=== PATIENT | female | born 2000 | race Caucasian/White ===

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

== ENCOUNTER 2019-04-22 17:41 | Emergency (ER) | payer BC ==
[2019-04-22 18:02] VITALS: BP 99/65
--- NOTE | 2019-04-22 18:16 | UC ---
General HPI - HPI Summary HPI Summary: diarrhea saturday x3, saturday x2. once yesterday and none today. past 2 days pt c/o a sore throat and white spots on R tonsil. no fever, cough, sob, abdominal pain, n/v. - History of Current Complaint Chief Complaint: UCGeneralIllness Stated Complaint: SORE THROAT/SPOTS Time Seen by Provider: 04/22/19 18:00 Hx Obtained From: Patient Hx Last Menstrual Period: 04/01/19 Pain Intensity: 0 - Allergy/Home Medications Allergies/Adverse Reactions: Allergies Allergy/AdvReac Type Severity Reaction Status Date / Time No Known Allergies Allergy Verified 04/22/19 18:04 Home Medications: Home Medications Norgestimate-Ethinyl Estradiol [Tri-Linyah Tablet] 1 tab PO DAILY 04/22/19 [ History Confirmed 04/22/19] PMH/Surg Hx/FS Hx/Imm Hx Previously Healthy: Yes - Surgical History Surgical History: None - Family History Known Family History: Positive: Diabetes, Other - postivie h for eye irritation Negative: Cardiac Disease, Hypertension - Social History Lives: With Family Alcohol Use: None Substance Use Type: None Smoking Status (MU): Never Smoked Tobacco Have You Smoked in the Last Year: No - Immunization History Vaccination Up to Date: Yes Review of Systems All Other Systems Reviewed And Are Negative: Yes Constitutional: Negative: Fever, Chills ENT: Positive: Sore Throat. Negative: Nasal Discharge, Sinus Congestion, Sinus Pain/Tenderness Respiratory: Negative: Shortness Of Breath, Cough Cardiovascular: Negative: Chest Pain Gastrointestinal: Positive: Diarrhea - has resolved. Negative: Abdominal Pain, Vomiting, Nausea Physical Exam Triage Information Reviewed: Yes Appearance: Well-Appearing Vital Signs: Initial Vital Signs Temp 98.6 F 04/22/19 17:56 Pulse 71 04/22/19 17:56 Resp 16 04/22/19 17:56 BP 99/65 04/22/19 17:56 Pulse Ox 100 04/22/19 17:56 Eye Exam: Normal ENT: Positive: Pharyngeal erythema - AND MILD TONSILLAR ERYTHEMA, TMs normal, Uvula midline. Negative: Nasal congestion, Nasal drainage, Tonsillar exudate, Trismus, Muffled voice, Hoarse voice Neck: Positive: Supple, Nontender, Enlarged Nodes @ - PERITONSILAR Respiratory: Positive: No respiratory distress Abdomen Description: Positive: Nontender, No Organomegaly, Soft Musculoskeletal: Positive: ROM Intact Neurological: Positive: Alert Psychological: Positive: Age Appropriate Behavior Skin Exam: Normal Skin: Negative: Rashes Diagnostics - Laboratory Lab Results: RAPID STREP=NEGATIVE Course/Dx - Differential Dx - Multi-Symptom Differential Diagnoses: Other - RAPID STREP=NEGATIVE. ANTIBIOTICS NOT INDICATED. - Diagnoses Provider Diagnosis: Tonsillitis Discharge - Sign-Out/Discharge Documenting (check all that apply): Patient Departure All imaging exams completed and their final reports reviewed: No Studies - Discharge Plan Condition: Stable Disposition: HOME Patient Education Materials: Tonsillitis (ED) Referrals: Sebas Torres MD [Medical Doctor] - Additional Instructions: FOLLOW UP IF NOT BETTER IN5-7 DAYS OR SOONER IF WORSE. - Billing Disposition and Condition Condition: STABLE Disposition: Home
== END 2019-04-22 18:24 | disposition home or self-care (01) ==
LOC: UCCORT 17:41
DX: J03.90 Acute tonsillitis, unspecified (principal)
CPT/HCPCS: 87651; 99211; G0463

== ENCOUNTER 2019-07-02 12:21 | Emergency (ER) | payer MEDICAID, OTHER ==
[2019-07-02 13:26] VITALS: BP 114/63
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
== END 2019-07-02 15:01 | disposition home or self-care (01) ==
LOC: UCCORT 12:21
DX: R51 Headache (principal); R42 Dizziness and giddiness
CPT/HCPCS: 99211; G0463

== ENCOUNTER 2019-07-23 08:41 | Emergency (ER) | payer OTHER ==
[2019-07-23 08:57] VITALS: BP 110/71
--- NOTE | 2019-07-23 10:10 | ED ---
Abdominal Pain/Female - HPI Summary HPI Summary: 19 yr old female with the complaint of right flank pain, and right upper quadrant pain. No fever or chills. No NVD. No loss of appetite. Pain not affected by eating. No vaginal bleeding or discharge. Pain is 5/10. - History of Current Complaint Chief Complaint: UCAbdominalPain Stated Complaint: LOWER ABD PAIN Time Seen by Provider: 07/23/19 09:02 Hx Last Menstrual Period: 07/06/19 Pain Intensity: 6 Allergies/Adverse Reactions: Allergies Allergy/AdvReac Type Severity Reaction Status Date / Time No Known Allergies Allergy Verified 07/23/19 08:57 PMH/Surg Hx/FS Hx/Imm Hx Endocrine/Hematology History: Denies: Hx Thyroid Disease Respiratory History: Denies: Hx Asthma Infectious Disease History: No Infectious Disease History: Denies: History Other Infectious Disease, Traveled Outside the in Last 30 Days - Family History Known Family History: Positive: Diabetes, Other - postivie h for eye irritation Negative: Cardiac Disease, Hypertension - Social History Occupation: Employed Full-time Alcohol Use: Occasionally Substance Use Type: Reports: None Smoking Status (MU): Never Smoked Tobacco Have You Smoked in the Last Year: No Review of Systems Constitutional: Negative Positive: flank pain All Other Systems Reviewed And Are Negative: Yes Physical Exam Triage Information Reviewed: Yes Vital Signs On Initial Exam: Initial Vitals Temp Pulse Resp BP Pulse Ox 99.4 F 87 16 110/71 98 07/23/19 08:52 07/23/19 08:52 07/23/19 08:52 07/23/19 08:52 07/23/19 08:52 Vital Signs Reviewed: Yes Appearance: Positive: Well-Appearing, No Pain Distress Skin: Positive: Warm, Skin Color Reflects Adequate Perfusion Head/Face: Positive: Normal Head/Face Inspection Eyes: Positive: EOMI ENT: Positive: Normal ENT inspection Neck: Positive: Nontender Respiratory/Lung Sounds: Positive: Clear to Auscultation, Breath Sounds Present Cardiovascular: Positive: RRR. Negative: Murmur Abdomen Description: Positive: Nontender, CVA Tenderness (R). Negative: Distended Musculoskeletal: Positive: Strength/ROM Intact Neurological: Positive: Sensory/Motor Intact, Alert, Oriented to Person Place, Time, CN Intact II-III, Normal Gait, Speech Normal Psychiatric: Positive: Normal Diagnostics - Vital Signs Vital Signs Temp Pulse Resp BP Pulse Ox 07/23/19 08:52 99.4 F 87 16 110/71 98 - Laboratory Lab Results: Lab Results 07/23/19 Range/Units 09:59 POC Urine Color Yellow POC Urine Clarity Cloudy POC Urine pH 7.0 (5-9) POC Ur Specif [place] 1.015 (1.010-1.030) POC Urine Protein 1+ A (Negative) POC Ur Glucose (UA) Negative (Negative) POC Urine Ketones Negative (Negative) POC Urine Blood 3+ A (Negative) POC Urine Nitrite Negative (Negative) POC Urine Bilirubin Negative (Negative) POC Urine Urobilinogen 0.2 (Negative) POC U Leukocyte Esteras 3+ A (Negative) Lab Statement: Any lab studies that have been ordered have been reviewed, and results considered in the medical decision making process. Abdominal Pain Fem Course/Dx - Course Course Of Treatment: 19 yr old with pyelonephritis. Rx with bactrim. DChome - Diagnoses Provider Diagnoses: Pyelonephritis Discharge ED - Sign-Out/Discharge Documenting (check all that apply): Patient Departure All imaging exams completed and their final reports reviewed: No Studies - Discharge Plan Condition: Good Disposition: HOME Prescriptions: Sulfamethox/Trimethoprim DS* [Bactrim DS 800/160 TAB*] 1 tab PO BID #20 tab Patient Education Materials: Kidney Infection (ED), Flank Pain (ED) Referrals: Daron Alejo PA [Primary Care Provider] - 2 Days - Billing Disposition and Condition Condition: GOOD Disposition: Home
== END 2019-07-23 10:17 | disposition home or self-care (01) ==
LOC: UCCORT 08:41
DX: N10 Acute pyelonephritis (principal)
CPT/HCPCS: 81003; 84702; 87077; 87086; 99212; G0463

== ENCOUNTER 2019-09-09 10:22 | Emergency (ER) | payer OTHER ==
[2019-09-09 10:58] VITALS: BP 108/63
--- NOTE | 2019-09-09 11:36 | UC ---
Throat Pain/Nasal Juan HPI - HPI Summary HPI Summary: 19 yo female with sore throat and fever/chills x 2 days hurts to swallow - History of Current Complaint Chief Complaint: UCGeneralIllness Stated Complaint: SORE THROAT Time Seen by Provider: 09/09/19 10:59 Hx Obtained From: Patient Hx Last Menstrual Period: 08/18/19 Onset/Duration: Gradual Onset, Lasting Days Severity: Moderate Pain Intensity: 5 Pain Scale Used: 0-10 Numeric Cough: None Associated Signs & Symptoms: Positive: Fever - Epiglottits Risk Factors Epiglottis Risk Factors: Negative - Allergies/Home Medications Allergies/Adverse Reactions: Allergies Allergy/AdvReac Type Severity Reaction Status Date / Time No Known Allergies Allergy Verified 09/09/19 10:54 Home Medications: Home Medications Escitalopram Oxalate [Lexapro 10 mg] 1 tab PO DAILY 09/09/19 [History Confirmed 09/09/19] PMH/Surg Hx/FS Hx/Imm Hx Previously Healthy: Yes - Surgical History Surgical History: None - Family History Known Family History: Positive: Diabetes, Other - postivie FMh for eye irritation Negative: Cardiac Disease, Hypertension - Social History Alcohol Use: Occasionally Substance Use Type: None Smoking Status (MU): Never Smoked Tobacco Have You Smoked in the Last Year: No - Immunization History Vaccination Up to Date: Yes Review of Systems All Other Systems Reviewed And Are Negative: Yes Constitutional: Positive: Fever, Chills Skin: Positive: Negative Eyes: Positive: Negative ENT: Positive: Sore Throat Respiratory: Positive: Negative Cardiovascular: Positive: Negative Gastrointestinal: Positive: Negative Genitourinary: Positive: Negative Motor: Positive: Negative Neurovascular: Positive: Negative Musculoskeletal: Positive: Negative Neurological: Positive: Negative Psychological: Positive: Negative Physical Exam Triage Information Reviewed: Yes Appearance: Well-Appearing, No Pain Distress, Well-Nourished Vital Signs: Initial Vital Signs Temp 100 F 09/09/19 10:55 Pulse 113 09/09/19 10:55 Resp 16 09/09/19 10:55 BP 108/63 09/09/19 10:55 Pulse Ox 100 09/09/19 10:55 Vital Signs Reviewed: Yes Eyes: Positive: Conjunctiva Clear ENT: Positive: Hearing grossly normal, Tonsillar swelling, Tonsillar exudate, Uvula midline. Negative: Nasal congestion, Nasal drainage, Trismus, Muffled voice, Hoarse voice Neck: Positive: Supple, Nontender, Enlarged Nodes @ - ant cerv Respiratory: Positive: Lungs clear, Normal breath sounds, No respiratory distress, No accessory muscle use Cardiovascular: Positive: RRR, No Murmur Musculoskeletal: Positive: ROM Intact, No Edema Neurological: Positive: Alert Psychological Exam: Normal Skin Exam: Normal Throat Pain/Nasal Course/Dx - Differential Dx/Diagnosis Provider Diagnosis: Tonsillitis Discharge ED - Sign-Out/Discharge Documenting (check all that apply): Patient Departure All imaging exams completed and their final reports reviewed: No Studies - Discharge Plan Condition: Stable Disposition: HOME Prescriptions: Cephalexin CAP* [Keflex CAP*] 500 mg PO BID #20 cap predniSONE [Prednisone 20 MG TAB] 60 mg PO DAILY #9 tab predniSONE [Prednisone 20 MG TAB] 60 mg PO DAILY #9 tab Patient Education Materials: Tonsillitis (ED) Forms: *Work Release Referrals: Daron Alejo PA [Primary Care Provider] - If Needed - Billing Disposition and Condition Condition: STABLE Disposition: Home
--- NOTE | 2019-09-11 07:38 | UC ---
- Progress Note Progress Note: + Group C strep On cephalexin no change ljj 09/11/19 Course/Dx - Diagnoses Provider Diagnoses: Tonsillitis Discharge ED - Sign-Out/Discharge Documenting (check all that apply): Post-Discharge Follow Up All imaging exams completed and their final reports reviewed: No Studies - Discharge Plan Condition: Stable Disposition: HOME Prescriptions: Cephalexin CAP* [Keflex CAP*] 500 mg PO BID #20 cap predniSONE [Prednisone 20 MG TAB] 60 mg PO DAILY #9 tab predniSONE [Prednisone 20 MG TAB] 60 mg PO DAILY #9 tab Patient Education Materials: Tonsillitis (ED) Forms: *Work Release Referrals: Daron Alejo PA [Primary Care Provider] - If Needed - Billing Disposition and Condition Condition: STABLE Disposition: Home
== END 2019-09-09 11:43 | disposition home or self-care (01) ==
LOC: UCCORT 10:22
DX: J03.90 Acute tonsillitis, unspecified (principal)
CPT/HCPCS: 87070; 87077; 87651; 99212; G0463

== ENCOUNTER 2019-10-22 17:41 | Emergency (ER) | payer OTHER ==
[2019-10-22 17:58] VITALS: BP 123/76
--- NOTE | 2019-10-22 18:14 | UC ---
Abdominal Pain Female HPI - HPI Summary HPI Summary: 19 yo female with `1 week hx of diarrhea 10+x/d no n/v ? low grade temp NO SANCHEZ no myalgias was on keflex last month - History of Current Complaint Chief Complaint: UCGU Stated Complaint: ABDOMINAL PAIN/DIARRHEA/ACHY Time Seen by Provider: 10/22/19 18:02 Hx Obtained From: Patient Hx Last Menstrual Period: 10/18/19 Onset/Duration: Gradual Onset, Lasting Days Severity Initially: Moderate Severity Currently: Moderate Pain Intensity: 7 - when she has cramps/she is currently pain free Pain Scale Used: 0-10 Numeric Location: Diffuse Character: Cramping Aggravating Factor(s): Food Alleviating Factor(s): Nothing Associated Signs and Symptoms: Positive: Diarrhea. Negative: Diaphoresis, Cough , Chest Pain, Dizzy, Back Pain, Constipation, Blood in Stool, Urinary Symptoms, Decreased Appetite, Vaginal Bleeding, Vaginal Discharge, Nausea, Vomiting Allergies/Adverse Reactions: Allergies Allergy/AdvReac Type Severity Reaction Status Date / Time No Known Allergies Allergy Verified 10/22/19 17:59 PMH/Surg Hx/FS Hx/Imm Hx Previously Healthy: Yes - Surgical History Surgical History: None - Family History Known Family History: Positive: Diabetes, Other - postivie FMh for eye irritation Negative: Cardiac Disease, Hypertension - Social History Alcohol Use: Occasionally Substance Use Type: None Smoking Status (MU): Never Smoked Tobacco Have You Smoked in the Last Year: No - Immunization History Vaccination Up to Date: Yes Review of Systems All Other Systems Reviewed And Are Negative: Yes Constitutional: Positive: Negative Skin: Positive: Negative Eyes: Positive: Negative ENT: Positive: Negative Respiratory: Positive: Negative Cardiovascular: Positive: Negative Gastrointestinal: Positive: Abdominal Pain - intermittent/generalized/crampy, Diarrhea Genitourinary: Positive: Negative Motor: Positive: Negative Neurovascular: Positive: Negative Musculoskeletal: Positive: Negative Neurological: Positive: Negative Psychological: Positive: Negative Physical Exam Triage Information Reviewed: Yes Appearance: Well-Appearing, No Pain Distress, Well-Nourished Vital Signs: Initial Vital Signs Temp 99 F 10/22/19 17:49 Pulse 94 10/22/19 17:49 Resp 20 10/22/19 17:49 BP 123/76 10/22/19 17:49 Pulse Ox 98 10/22/19 17:49 Vital Signs Reviewed: Yes Eyes: Positive: Conjunctiva Clear ENT: Positive: Hearing grossly normal, Pharynx normal, Uvula midline. Negative : Nasal congestion, Nasal drainage, Trismus, Hoarse voice Dental Exam: Normal Neck: Positive: Supple, Nontender, No Lymphadenopathy Respiratory: Positive: Lungs clear, Normal breath sounds, No respiratory distress, No accessory muscle use Cardiovascular: Positive: RRR, No Murmur Abdomen Description: Positive: Nontender, No Organomegaly, Soft. Negative: CVA Tenderness (R), CVA Tenderness (L) Bowel Sounds: Positive: Present Musculoskeletal: Positive: ROM Intact, No Edema Neurological: Positive: Alert Psychological Exam: Normal Skin Exam: Normal Abd Pain Female Course/Dx - Course Course Of Treatment: unable to provide specimen here - Differential Dx/Diagnosis Provider Diagnosis: Acute diarrhea Discharge ED - Sign-Out/Discharge Documenting (check all that apply): Patient Departure All imaging exams completed and their final reports reviewed: No Studies - Discharge Plan Condition: Stable Disposition: HOME Patient Education Materials: Acute Diarrhea (ED), Nutrition Tips for Relief of Diarrhea (ED) Referrals: Daron Alejo PA [Primary Care Provider] - 4 Days Additional Instructions: Bring in stool for studies to ER for new or worsening symptoms - Billing Disposition and Condition Condition: STABLE Disposition: Home
--- NOTE | 2019-10-25 07:01 | UC ---
- Progress Note Progress Note: Stool studies reviewed Patient is seen for diarrhea. C. difficile PCR: Negative Stool culture, Shiga toxin and ova and parasite: Pending Await final culture studies No change in plan Course/Dx - Diagnoses Provider Diagnoses: Acute diarrhea Discharge ED - Sign-Out/Discharge Documenting (check all that apply): Post-Discharge Follow Up All imaging exams completed and their final reports reviewed: No Studies - Discharge Plan Condition: Stable Disposition: HOME Patient Education Materials: Acute Diarrhea (ED), Nutrition Tips for Relief of Diarrhea (ED) Referrals: Daron Alejo PA [Primary Care Provider] - 4 Days Additional Instructions: Bring in stool for studies to ER for new or worsening symptoms - Billing Disposition and Condition Condition: STABLE Disposition: Home
--- NOTE | 2019-10-26 14:26 | UC ---
- Progress Note Progress Note: Stool O and P from October 23, 2019 comes back as positive for Giardia negative for cryptosporidium. Patient to call patient's and have them start Flagyl 500 mg by mouth twice a day for 7 days. Follow-up with primary care physician. Reevaluation sooner if worse or questions or concerns. Course/Dx - Diagnoses Provider Diagnoses: Acute diarrhea Discharge ED - Sign-Out/Discharge Documenting (check all that apply): Patient Departure All imaging exams completed and their final reports reviewed: No Studies - Discharge Plan Condition: Stable Disposition: HOME Prescriptions: metroNIDAZOLE [Flagyl 500 MG TAB] 500 mg PO BID #14 tab Patient Education Materials: Acute Diarrhea (ED), Nutrition Tips for Relief of Diarrhea (ED) Referrals: Daron Alejo PA [Primary Care Provider] - 4 Days Additional Instructions: Bring in stool for studies to ER for new or worsening symptoms - Billing Disposition and Condition Condition: STABLE Disposition: Home
== END 2019-10-22 18:31 | disposition home or self-care (01) ==
LOC: UCCORT 17:41
DX: R19.7 Diarrhea, unspecified (principal); R10.9 Unspecified abdominal pain
CPT/HCPCS: 87045; 87046; 87328; 87329; 87493; 87899; 99211; G0463

== ENCOUNTER 2020-01-08 09:57 | Emergency (ER) | payer OTHER ==
[2020-01-08 10:30] VITALS: BP 114/62
--- NOTE | 2020-01-08 10:33 | UC ---
Dental HPI - HPI Summary HPI Summary: 19 year old female who complains of a left lower toothache since Saturday of this week (5 days). She also has some scattered canker sores in her mouth. No fever or chills, no cold symptoms. - History of Current Complaint Chief Complaint: UCDentalProblem Stated Complaint: DENTAL/ORAL Time Seen by Provider: 01/08/20 10:19 Hx Obtained From: Patient Hx Last Menstrual Period: 12/2019 ?: No Onset/Duration: Gradual Onset, Lasting Days Severity: Mild Pain Intensity: 8 Aggravating Factor(s): Chewing Alleviating Factor(s): Nothing - Allergies/Home Medications Allergies/Adverse Reactions: Allergies Allergy/AdvReac Type Severity Reaction Status Date / Time No Known Allergies Allergy Verified 01/08/20 10:28 Home Medications: Home Medications Norgestimate-Ethinyl Estradiol [Tri-Linyah Tablet] 1 tab PO DAILY 04/22/19 [ History Confirmed 01/08/20] Escitalopram Oxalate [Lexapro 10 mg] 1 tab PO DAILY 09/09/19 [History Confirmed 01/08/20] Amoxicillin PO (*) [Amoxicillin 875 MG (*)] 875 mg PO BID 10 Days #20 tab [Rx] Ibuprofen TAB* [Motrin TAB* 800 MG] 800 mg PO ONCE 01/08/20 [History Confirmed 01/08/20] PMH/Surg Hx/FS Hx/Imm Hx Previously Healthy: Yes Psychological History: Depression - Surgical History Surgical History: None - Family History Known Family History: Positive: Diabetes, Other - postivie FMh for eye irritation Negative: Cardiac Disease, Hypertension - Social History Lives: With Family Alcohol Use: Occasionally Substance Use Type: None Smoking Status (MU): Never Smoked Tobacco Have You Smoked in the Last Year: No - Immunization History Vaccination Up to Date: Yes Review of Systems All Other Systems Reviewed And Are Negative: Yes Skin: Positive: Other - Patient has some scattered canker sores around her buccal mucosa. ENT: Positive: Dental Pain Is Patient Immunocompromised?: No Physical Exam Triage Information Reviewed: Yes Appearance: No Pain Distress, Well-Nourished Vital Signs: Initial Vital Signs Temp 99.1 F 01/08/20 10:26 Pulse 83 01/08/20 10:26 Resp 15 01/08/20 10:26 BP 114/62 01/08/20 10:26 Pulse Ox 100 01/08/20 10:26 Vital Signs Reviewed: Yes Eyes: Positive: Conjunctiva Clear ENT: Positive: TMs normal, Uvula midline, Other - Patient has some scattered small reddish papules which appear to be aphthous ulcers on her posterior pharynx and her tongue. Dental: Positive: Percussion Tenderness @ - Tooth #20. The gumline itself is not excessively erythematous or swollen. I don't see any dental abscess and the tooth is intact. Neck: Positive: Supple, Nontender, No Lymphadenopathy Respiratory: Positive: Lungs clear, Normal breath sounds, No respiratory distress, No accessory muscle use Cardiovascular: Positive: RRR, No Murmur, Pulses Normal, Brisk Capillary Refill Musculoskeletal Exam: Normal Neurological Exam: Normal Psychological Exam: Normal Skin: Positive: Other - See above notes Dental Complaint Course/Dx - Course Course Of Treatment: Patient is comfortable here. I am going to treat her with an antibiotic because she stated her left lower jaw was swollen this morning although I do not see that here. She is also to rinse her mouth with warm salt water to treat the aphthous ulcers. If she needs further follow-up with a dentist she is to call her own dentist and talk with him. - Differential Dx/Diagnosis Provider Diagnosis: Aphthous ulcer of mouth, Toothache Discharge ED - Sign-Out/Discharge Documenting (check all that apply): Patient Departure All imaging exams completed and their final reports reviewed: No Studies - Discharge Plan Condition: Good Disposition: HOME Prescriptions: Amoxicillin PO (*) [Amoxicillin 875 MG (*)] 875 mg PO BID 10 Days #20 tab Patient Education Materials: Canker Sores (ED), Toothache (ED) Referrals: Daron Alejo PA [Primary Care Provider] - Additional Instructions: May take Tylenol every 4 hours and alternate with Motrin every 8 hours for pain. Warm saltwater gargles 4-6 times a day. Follow-up with your dentist as needed. - Billing Disposition and Condition Condition: GOOD Disposition: Home - Attestation Statements Provider Attestation: This patient was not seen by me. I was available for consult. Chart reviewed. BEULAH
== END 2020-01-08 10:46 | disposition home or self-care (01) ==
LOC: UCCORT 09:57
DX: K12.0 Recurrent oral aphthae (principal); K08.89 Other specified disorders of teeth and supporting structures; F32.9 Major depressive disorder, single episode, unspecified; Z79.899 Other long term (current) drug therapy
CPT/HCPCS: 99212; G0463